=== PATIENT | male | born 1965 | race Caucasian/White ===

== ENCOUNTER → 2018-12-15 16:48 | Outpatient (CLI) | payer OTHER ==
[2018-12-15 17:53] LABS: PROTEIN - BODY FLUID 7.8 G/DL
[2018-12-15 20:35] LABS: MACROPHAGES BF 6 %; MESOTHELIALS BF 1 %; NEUT - BF 90 %
== END | disposition home or self-care (01) ==
LOC: D.LABREF 16:48
PROVIDERS: ATTEND Nurse Practitioner Family
DX: M25.561 Pain in right knee (principal)

== ENCOUNTER → 2018-12-23 14:09 | Outpatient (CLI) | payer OTHER | END | disposition home or self-care (01) | LOC: D.MRI 14:09 | PROVIDERS: ATTEND Nurse Practitioner Family | DX: M25.561 Pain in right knee (principal) ==